=== PATIENT | male | born 1990 | race Caucasian/White ===

== ENCOUNTER 2016-06-01 16:18 | Emergency (ER) | payer OTHER ==
[2016-06-01 17:04] VITALS: BP 125/58; PULSE 88; TEMP 98.8; BMI 30.7
[2016-06-01] MEDS ORDERED: KETOROLAC TROMETHAMINE 10 MG TAB PO ONE (17:09)
[2016-06-01] MEDS ORDERED: CLINDAMYCIN 150 MG CAP PO ONE (17:09)
[2016-06-01] MEDS ORDERED: DIPHTHERIA AND TETANUS (ADULT) 0.5 ML SYR IM ONE (17:12)
--- NOTE | 2016-06-01 17:13 | EDPRACDOC ---
- General Information Information Source: Patient Home Medications: Home Medications Ibuprofen Tablet [Motrin] 800 mg PO TID PRN #30 tab 05/02/16 Promethazine Dextromethorphan [Phenergan DM] 5 ml PO Q6 PRN #120 ml 05/02/16 Clindamycin [Cleocin] 300 mg PO TID #60 capsule 06/01/16 Oxycodone Immediate Release [Oxycodone Immediate Release (OxyIR)] 5 mg PO Q6H PRN #14 tab 06/01/16 Allergies/Adverse Reactions: Allergies Allergy/AdvReac Type Severity Reaction Status Date / Time Sulfa (Sulfonamide Allergy Unknown Verified 05/02/16 14:13 Antibiotics) - History of Present Illness Onset: Monday HPI: PT STATES WAS WORKING ON CAR MONDAY CUT LEFT HAND DORSAL SURFACE THEN STARTED TURNING RED YESTERDAY AND IS NOW SWOLLEN AND RED TODAY WITH MILD AMOUNT OF PURULENT DRAINAGE COMING FROM LACERATION ON LEFT HAND. - Tetanus Status Last Tetanus: No - Pain Pain Severity: Mild Bleeding: Reports: Controlled Associated Signs & Symptoms: Reports: None - Treatment Prior to ED Arrival Reported Medications/Treatment ADMISSIONS ASSISTANT Treated With Medication ADMISSIONS ASSISTANT YES Ibuprofen/Acetaminophen (Dose/ Ibuprofen 800mg this am 0700 Time) Medications ADMISSIONS ASSISTANT (Medication/ ibuprofen Dose/Time) ED Past Medical History - History Reviewed Yes Nurses notes reviewed and agree except as marked Travel Outside of [place] in the Last 3 Months?: No - Patient Medical History Respiratory History: Reports: Asthma Psychological History: Denies: Depression - Social Medical History Smoking Status: Never smoker ETOH: None Substance Abuse: None Lives With: Other Lives In: Home EDM Review of Systems - Review of Systems ROS Negative Except as Marked: Yes All systems reviewed and were negative except as marked Constitutional: No Symptoms Reported. negative: Fever, Chills, Weakness, Fatigue, Loss of Appetite Eyes: No Symptoms Reported. negative: Redness, Blurred Vision, Double Vision, Discharge, Pain, Light Sensitive, Photophobia Ears: No Symptoms Reported. negative: Pain, Hearing Loss, Drainage, Ear Pulling Throat: No Symptoms Reported. negative: Pain, Swelling Nose: No Symptoms Reported. negative: Congestion, Bleeding, Discharge, Injection, Swelling, Deformity, Ecchymosis, Tender, Abrasion, Laceration Mouth: No Symptoms Reported. negative: Pain, Drooling Respiratory: No Symptoms Reported. negative: Cough, Brassy Cough, Barky Cough, Shortness of Breath, Wheezing, Hemoptysis Cardiovascular: No Symptoms Reported. negative: Chest Pain, Palpitations, Syncope, Edema, Orthopnea, PND, Skin Mottling, Cyanosis Gastrointestinal: No Symptoms Reported. negative: Pain, Constipation, Nausea, Vomiting, Diarrhea, Melena, Formula Intolerance Genitourinary: No Symptoms Reported. negative: Dysuria, Hematuria, Frequency, Discharge, Bleeding, Testicular Pain, Neurological: No Symptoms Reported. negative: Headache, Dizziness, Seizure, Numbness, Weakness, Speech Difficulty, Gait Difficulty Musculoskeletal: No Symptoms Reported. negative: Neck, Chestwall, Ribs, Back, Shoulder, Arm, Elbow, Forearm, Wrist, Hand, Pelvis, Hip, Femur, Knee, Leg, Ankle , Foot Integumentary: Other (REDNESS AND SWELLING OF LEFT HAND DORSALLY WITH MILD AMOUNT OF PURULENT DISCHARGE FROM LACERATION.). negative: Bruising, Itching, Rash, Wound Allergic/Immunologic: No Symptoms Reported. negative: Hives, Itching Hematologic: No Symptoms Reported. negative: Lymphadenopathy, Easy Bruising, Easy Bleeding Endocrine: No Symptoms Reported. negative: Weight Gain, Weight Loss Psychiatric: No Symptoms Reported. negative: Anxiety, Depression, Hallucinations, Insomnia, Suicidal - Physical Exam Constitutional: Alert (Awake), No apparent distress Oriented to: Time, Person, Place Last recorded Vital Signs: Last Vital Signs Temp 98.8 F 06/01/16 17:00 Pulse 88 06/01/16 17:00 Resp 20 06/01/16 17:00 BP 125/58 L 06/01/16 17:00 Pulse Ox 97 06/01/16 17:00 Oxygen Pulse Oxygen Saturation 97 O2 Device Oxygen Flow Rate Fraction of Inspired Oxygen ( FIO2) - HEENT Head: Normal ( normocephalic) Eye Exam: Normal (PERRL, EOMI, Sclera white) Oropharynx: Normal (Pharynx:Moist without exudate,Gums-no swelling) Tympanic Membrane: Normal ENT EAC: Normal TMJ: Normal Nose: No Symptoms Reported (septum midline) Neck: Normal (FROM, trachea at midline) - Respiratory/Cardiovascular Respiratory: Normal - CTA (BBS clear to auscultation without adventitious sounds ) Cardiovascular: Normal (RRR without murmur, gallop or rub) - GI Auscultation: Normal (NABS) Palpation: Normal (Soft,No rebound or guarding, non distended) Tenderness: Non tender Dias's Sign: Negative - Bladder: Normal - Musculoskeletal Back: Normal (Non-Tender) Extremities: Normal (Normal tone, Pulses 2+ No cyanosis or edema, FROM) Musculoskeletal Comment: FULL ROM AND NVI IN LEFT HAND. - Integumentary Skin: Normal, Warm, Dry, Other (REDNESS AND SWELLING OF LEFT HAND DORSALLY WITH MILD AMOUNT OF PURULENT DISCHARGE FROM LACERATION.) Lymphatics: Normal (no adenopathy) - Neurologic Memory Impaired: Normal Motor Function: Normal (Normal tone, Pulses 2+ No cyanosis or edema, FROM) Cranial Nerve: Normal (CN II-X11 intact sensation, strength 5/5) Cerebellar: Normal Mood Description: Normal Perception: Normal - Differential Diagnosis Fracture, Foreign Body, Laceration, Other (CELLULITIS) - Diagnostic Imaging HAND Image interpreted by: Radiologist IMPRESSION: 1. Dorsal soft tissue swelling in the hand, without foreign body, gas in the soft tissues, or underlying bony abnormality. Decision Time to Discharge: 17:37 - Departure Disposition: Home Condition: Stable Final Diagnosis: Cellulitis of left hand Instructions: RICE: Routine Care for Injuries, Cellulitis (ED) Education/Counseling Given To: Patient Education/Counseling Given Regarding: Diagnosis, Treatment, Prognosis, Follow Up Referrals: None,No Provider [Primary Care Provider] - One Week Prescriptions: Clindamycin [Cleocin] 300 mg PO TID #60 capsule Oxycodone Immediate Release [Oxycodone Immediate Release (OxyIR)] 5 mg PO Q6H PRN #14 tab PRN Reason: Pain Additional Instructions: RETURN IN 2 DAYS FOR WOUND CHECK OR SOONER IF SYMPTOMS WORSEN OR CHANGE. MOTRIN AND TYLENOL FOR FEVERS. WASH WITH SOAP AND WATER DRY THOROUGHLY, KEEP COVERED.
--- NOTE | 2016-06-01 17:32 | DIRPT ---
CLINICAL DATA: Erythema and swelling with laceration over the fourth dorsal metacarpal. Injured working on the car. When drainage. EXAM: LEFT HAND - COMPLETE 3+ VIEW COMPARISON: None. FINDINGS: No acute bony abnormality. Soft tissue swelling diffusely along the dorsum of the hand without obvious gas tracking in the soft tissues. No foreign body observed. IMPRESSION: 1. Dorsal soft tissue swelling in the hand, without foreign body, gas in the soft tissues, or underlying bony abnormality. Electronically Signed By: Darshan Chu M.D. On: 06/01/2016 17:29
== END 2016-06-01 17:51 | disposition home or self-care (01) ==
LOC: ED 16:18 → EDMC 17:51
DX: L03.114 Cellulitis of left upper limb (principal); Z23 Encounter for immunization
CPT/HCPCS: 73130; 87070; 87075; 87077; 87186; 90471; 90714; 99283; J3490